=== PATIENT | female | born 1985 | race Caucasian/White ===

== ENCOUNTER 2018-10-17 01:40 | Inpatient (IN) | payer OTHER ==
[~2018-10-17] VITALS: Ht 170.2 cm; Wt 83.6 kg
[2018-10-17 01:50] VITALS: BP 136/74; PULSE 74; RESP 17; Ht 170.2 cm; Wt 83.6 kg
[2018-10-17] MEDS ORDERED: BUTORPHANOL 2 MG INJ ONE (02:18)
[2018-10-17] MEDS ORDERED: AMPICILLIN 2 GM/NS (PMX) 100 ML IV ONE (02:30)
[2018-10-17] MEDS ORDERED: CARBOPROST 250 MCG INJ IM PRN ×2 (02:30→06:00)
[2018-10-17] MEDS ORDERED: OXYTOCIN 30 UNITS/LR 500 ML IV PRN ×2 (02:30→06:00)
[2018-10-17] MEDS ORDERED: OXYTOCIN 30 UNITS/LR 500 ML IV SCH ×2 (02:30)
[2018-10-17] MEDS ORDERED: LIDOCAINE 1% (MPF) 30 ML INJ INJ PRN (02:30)
[2018-10-17] MEDS ORDERED: IBUPROFEN 600 MG TAB PO PRN (02:30)
[2018-10-17] MEDS ORDERED: BUTORPHANOL 2 MG INJ IV PRN (02:30)
[2018-10-17] MEDS ORDERED: MISOPROSTOL 200 MCG TAB PR PRN ×2 (02:30→06:00)
[2018-10-17] MEDS ORDERED: METHYLERGONOVINE 0.2 MG INJ IM PRN ×2 (02:30→06:00)
[2018-10-17] MEDS: LACTATED RINGER'S 1,000 ML IV SCH ×2 (02:34→03:26)
--- NOTE | 2018-10-17 03:06 | PREAC ---
Date/Time of Note Date/Time of Note DATE: 10/17/18 TIME: 03:05 Anesthesia Eval and Record Evaluation Time Pre-Procedure Interview DATE: 10/17/18 TIME: 03:05 Age 33 Sex female NPO: 8 hrs Preoperative diagnosis Planned procedure labor epidural Past Medical History Past Medical History: None Surgery & Anesthesia Issues No known issue Meds Anticoagulation: No Beta Victoriano within 24 hr: No Reason Beta Victoriano not given: Pt. not on B-Victoriano Current Medications Lactated Ringer's 1,000 ml @ 125 mls/hr Q8H IV Last administered on 10/17/18at 02:34; Admin Dose 125 MLS/HR; Start 10/17/18 at 02:07 Lidocaine (Xylocaine 1% (Mpf)) 30 ml ONCE PRN INJ .EPISIOTOMY; Start 10/17/18 at 02:30 Oxytocin/Lactated Ringer's 500 ml @ 500 mls/hr ONCE POST IV ; Start 10/17/18 at 02:30 Oxytocin/Lactated Ringer's 500 ml @ 125 mls/hr POST IV ; Start 10/17/18 at 02:30 Ibuprofen (Motrin) 600 mg ONCE PRN PO .PAIN 1-5; Start 10/17/18 at 02:30 Oxytocin/Lactated Ringer's 500 ml @ 0 mls/hr ONCE PRN IV .VAGINAL BLEEDING; Start 10/17/18 at 02:30 Methylergonovine Maleate (Methergine) 0.2 mg ONCE PRN IM .VAGINAL BLEEDING; Start 10/17/18 at 02:30 Carboprost Tromethamine (Hemabate) 250 mcg ONCE PRN IM .VAGINAL BLEEDING; Start 10/17/18 at 02:30 Misoprostol (Cytotec) 1,000 mcg ONCE PRN [place] .VAGINAL BLEEDING; Start 10/17/18 at 02:30 Butorphanol Tartrate (Stadol) 2 mg Q2H PRN IV PAIN Last administered on 10/17/18at 02:43; Admin Dose 2 MG; Start 10/17/18 at 02:30 Meds reviewed: Yes Allergies Coded Allergies: No Known Allergy (Unverified , 10/17/18) Allergies Reviewed: Yes Labs/Studies Labs Reviewed: Reviewed by anesthesiologist Result Diagram: 10/17/18 0230 Laboratory Tests 10/17/18 02:30 test: Positive Pre-procedure Exam Last vitals Vital Signs Date Temp Pulse Resp B/P (MAP) Pulse Ox O2 O2 Flow FiO2 Time Delivery Rate 10/17/18 98.1 74 17 136/74 Room Air 01:50 (94) Airway: Adequate mouth opening, Adequate thyromental dist Mallampati: Mallampati II Teeth: Normal Lung: Normal Heart: Normal ASA Physical Status ASA physical status: 2 Emergency: None Planned Anesthetic Neuraxial: Epidural Pre-operative Attestations Prior to commencing anesthesia and surgery, the patient was re-evaluated, there was verification of: *The patient's identity *The results of appropriate recent lab work and preoperative vital signs *The above evaluation not changing prior to induction *Anesthetic plan, risk benefits, alternative and complications discussed with patient/family; questions answered; patient/family understands, accepts and wishes to proceed. JOANNE ALEMAN Oct 17, 2018 03:06
[2018-10-17] MEDS ORDERED: ROPIVACAINE 0.2% 100 ML ONE (03:23)
[2018-10-17] MEDS ORDERED: DIPHENHYDRAMINE 50 MG INJ IV PRN (03:30)
[2018-10-17] MEDS ORDERED: ROPIVACAINE 0.2% 100ML BAG EPI SCH (03:30)
[2018-10-17] MEDS ORDERED: ONDANSETRON 4 MG INJ IV PRN (03:30)
[2018-10-17] MEDS ORDERED: NALOXONE (0.4 MG/ML) INJ IV PRN (03:30)
[2018-10-17] MEDS ORDERED: HYDROmorphONE 0.5 MG/0.5 ML SYG IV PRN ×2 (03:30)
[2018-10-17] MEDS ORDERED: KETOROLAC 30 MG INJ IV PRN (03:30)
--- NOTE | 2018-10-17 04:14 | HP ---
Date/Time of Note Date/Time of Note DATE: 10/17/18 TIME: 04:02 OB - History Hx of Present Free Text/Dictation 33y.o here at triage with c/o UC's q3-4min which started at 2030 with intact membrane. initial VE 7/100/-2 with membrane was bulging tracing CAT I no record is available. marijuana use positive GBS neg admitted for expectant management. Chief Complaint: uc's Estimated Due Date: Oct 22, 2018 : 7 Para: 2 Spontaneous : 3 Therapeutic : 1 Care: Other Ultrasounds: Other Obstetrical Complications: None Medical Complications: None Past Family/Social History * Past Medical, Surgical, Family and Obstetric Histories reviewed from chart. Blood Type: O+ Rubella: immune RPR/VDRL: Negative GBS Status: Negative HBsAG: Negative OB Admission Exam Vital Signs Vital Signs Vital Signs Date Temp Pulse Resp B/P (MAP) Pulse Ox O2 O2 Flow FiO2 Time Delivery Rate 10/17/18 98.1 74 17 136/74 Room Air 01:50 (94) Physical Exam HEENT: WNL Heart: Rhythm Normal Lungs: Clear, Equal Abdomen: WNL Extremities: Normal Reflexes: Normal Cervical Dilatation: 7cm Effacement: 100% Station: -2 Membranes: Intact Amniotic Fluid: Unevaluable Heart Rate: 130's Accelerations: Accelerations Present Decelerations: No Decelerations Varibility: Moderate Contractions on Admission: < 5 Minutes Apart Intensity: Firm Last 72 hours Lab Results CBC & BMP 10/17/18 02:30 OB Assessment/Plan Reason for admission: active labor Other Assessment: IUP 39w2d Plan: Expectant Management JUANY RUIZ MD Oct 17, 2018 04:12
--- NOTE | 2018-10-17 04:18 | LDN ---
Date/Time of Note Date/Time of Note DATE: 10/17/18 TIME: 04:16 Delivery Summary of normal female with tight nuchal cord X1 Weeks of Gestation 39w2d Placenta Delivered: Spontaneously, Intact & Complete Meconium: none Episiotomy: No Perineal laceration: 0 Anesthesia type: Epidural Estimated blood loss: 50 Sponge & Needle done & correct: Yes All needle counts correct: Yes Any foreign bodies felt in the: No Infant Delivery Information Sex Sex: female Apgars 1 Minute: 8 5 Minute: 9 Suctioning Nose & mouth suctioned at hira: Yes Delee suction performed: Yes Umbilical Cord Umbilical cord with: 3 Vessels Cord presentations: nuchal cord Nuchal cord present X: 1 Cord Blood was obtained: Yes Mother & Baby Disposition Disposition Mom & Baby to Maternity; Good: Yes Mom transferred to: Other Baby to NICU: No () JUANY RUIZ MD Oct 17, 2018 04:18
[2018-10-17 05:50] VITALS: BP 127/76; PULSE 76; RESP 19
[2018-10-17] MEDS ORDERED: BENZOCAINE 20% 56 ML SPRAY TOP PRN (06:00)
[2018-10-17] MEDS ORDERED: ZOLPIDEM 5 MG TAB PO PRN (06:00)
[2018-10-17] MEDS ORDERED: WITCH HAZEL/GLYCERIN PAD PR PRN (06:00)
[2018-10-17] MEDS ORDERED: LANOLIN HPA 1 PKT TOP PRN (06:00)
[2018-10-17] MEDS ORDERED: OXYCODONE/ASPIRIN (4.88/325) TAB PO PRN ×2 (06:00)
[2018-10-17] MEDS: IBUPROFEN 600 MG TAB PO SCH ×4 (06:00→23:34)
--- NOTE | 2018-10-17 06:11 | DELSUM ---
Delivery Summary A-C Datetime Report Generated by CPN: 10/17/2018 06:11 DELIVERY PERSONNEL Project Construction Manager: Ross, Michaelle MATERNAL INFORMATION Delivery Anesthesia: Epidural Medications in Delivery: 30 UNIT PITOCIN Delivery QBL (ml): 50 Placenta Cultured: No Maternal Complications: None LABOR SUMMARY EDC: 10/22/2018 00:00 No. Babies in Womb: 1 Attempted: Yes Labor Anesthesia: Epidural LABOR INFORMATION Reason for Induction: Not Applicable Onset of Labor: 10/16/2018 20:30 Complete Dilatation: 10/17/2018 03:40 Oxytocin: N/A Group B Beta Strep: Negative Antibiotics # of Doses: 0 Steroids Given: None Reason Steroids Not Administered: Not Applicable MEMBRANES Membranes Rupture Method: Artificial Rupture of Membranes: 10/17/2018 02:13 Length of Rupture (hr): 1.55 Amniotic Fluid Color: Clear Amniotic Fluid Amount: Moderate STAGES OF LABOR Stage 1 hr: 7 Stage 1 min: 10 Stage 2 hr: 0 Stage 2 min: 6 Stage 3 hr: 0 Stage 3 min: 4 Total Time in Labor hr: 7 Total Time in Labor min: 20 VAGINAL DELIVERY Episiotomy: None Laceration Extension: N/A Laceration Type: None Laceration Repair: Not Applicable Initial Vag Sponge Count: 10 Final Vag Sponge Count: 10 Initial Vag Sharps Count: 1 Final Vag Sharps Count: 1 Sponge Count Correct: Yes; Vaginal Sweep Performed Sharps Count Correct: Yes BABY A INFORMATION Infant Delivery Date/Time: 10/17/2018 03:46 Method of Delivery: Vaginal Method of Delivery: Vaginal Born in Route : No : N/A Forceps: N/A Vacuum Extraction: N/A Shoulder Dystocia : N/A SHOULDER DYSTOCIA BABY A Infant Delivery Date/Time: 10/17/2018 03:46 PRESENTATION/POSITION BABY A Presentation: Cephalic Cephalic Presentation: Vertex Vertex Position: Left Occipital Anterior Breech Presentation: N/A PLACENTA INFORMATION BABY A Placenta Delivery Time : 10/17/2018 03:50 Placenta Method of Delivery: Spontaneous Placenta Status: Delivered SCORES BABY A Heart Rate 1 min: >100 bpm Resp Effort 1 min: Good Cry Reflex Irritability 1 min: Cough/Sneeze/Pulls Away Muscle Tone 1 min: Active Motion Color 1 min: Blue/Pale Resuscitation Effort 1 min: Tactile Stimulation SCORE 1 MIN: 8 Heart Rate 5 min: >100 bpm Resp Effort 5 min: Good Cry Reflex Irritability 5 min: Cough/Sneeze/Pulls Away Muscle Tone 5 min: Active Motion Color 5 min: Body [place], Extremit Blue Resuscitation Effort 5 min: Tactile Stimulation SCORE 5 MIN: 9 INFANT INFORMATION BABY A Gestational Age at Delivery: 39.2 Gestational Status: Full Term- 39- 40.6 Weeks Outcome : Liveborn Infant Condition : Stable Infant Sex: Female Sex: Female IDENTIFICATION/MEDS BABY A ID Band Number: [id number] ID Band Location: Right Leg; Left Arm Sensor Applied: Yes Sensor Number: [id number] Sensor Location : Cord Clamp Vitamin K Given : Not Given Erythromycin Given: Not Given WEIGHT/LENGTH BABY A Infant Birthweight (gm): 3080 Infant Weight (lb): 6 Weight (oz): 13 Infant Length (in): 19.50 Length (cm): 49.53 CORD INFORMATION BABY A No. Cord Vessels: 3 Nuchal Cord : Around Neck x1, Tight Cord Blood Taken: Yes Suction: Mouth; Nose ASSESSMENT BABY A Infant Complications: Other Physical Findings at Delivery: Within Normal Limits Respirations: Appears Normal Lunch Cook/ALS Called : No Infant Care By: Asha DUVAL Transferred To: Remains with Mother
[2018-10-17] MEDS ORDERED: AMPICILLIN 1 GM/NS (PMX) 50 ML IV SCH (06:30)
[2018-10-17 07:30] VITALS: BP 122/66; PULSE 78; RESP 19
[2018-10-17] MEDS: SENNA/DOCUSATE NA (8.6MG/50MG) TAB PO SCH ×2 (09:28→21:03)
[2018-10-17 12:00] VITALS: BP 113/61; PULSE 85; RESP 19
[2018-10-17 16:00] VITALS: BP 111/60; PULSE 74; RESP 20
[2018-10-17 19:20] VITALS: BP 119/68; PULSE 89; RESP 20
[2018-10-18 04:00] VITALS: BP 114/77; PULSE 77; RESP 19
[2018-10-18] MEDS: IBUPROFEN 600 MG TAB PO SCH ×3 (05:27→17:52)
[2018-10-18 08:00] VITALS: BP 100/70; PULSE 74; RESP 18
[2018-10-18] MEDS: SENNA/DOCUSATE NA (8.6MG/50MG) TAB PO SCH ×2 (08:35→21:26)
[2018-10-18 15:51] VITALS: BP 120/57; PULSE 84; RESP 18
[2018-10-18 19:55] VITALS: BP 115/57; PULSE 84; RESP 20
[2018-10-19 03:45] VITALS: BP 108/56; PULSE 71; RESP 18
[2018-10-19] MEDS: IBUPROFEN 600 MG TAB PO SCH ×4 (05:31→18:00)
--- NOTE | 2018-10-19 07:23 | PAC ---
Date/Time of Note Date/Time of Note DATE: 10/19/18 TIME: 07:22 Post-Anesthesia Notes Post-Anesthesia Note Last documented vital signs Vital Signs Date Temp Pulse Resp B/P (MAP) Pulse Ox O2 O2 Flow FiO2 Time Delivery Rate 10/19/18 98.4 71 18 108/56 Room Air 03:45 (73) Activity: WNL Respiratory function: WNL Cardiovascular function: WNL Mental status: Baseline Pain reasonably controlled: Yes Hydration appropriate: Yes Nausea/Vomiting absent: Yes JOANNE ALEMAN Oct 19, 2018 07:22
[2018-10-19 08:10] VITALS: BP 113/66; PULSE 65; RESP 16
[2018-10-19] MEDS: SENNA/DOCUSATE NA (8.6MG/50MG) TAB PO SCH ×2 (09:00→21:00)
[2018-10-19] MEDS ORDERED: DIPHTH/TET/ACEL PERTUSS (ADULT) 0.5 ML VIAL IM* ONE (09:00)
--- NOTE | 2018-10-19 13:35 | PN ---
Date/Time of Note Date/Time of Note DATE: 10/18/18 TIME: 10:30AM Assessment/Plan VTE Prophylaxis Risk score (from Nsg)>0 risk: 1 SCD applied (from Ns): No SCD contraindicated: low risk/ambulating Pharmacological prophylaxis: NA/contraindicated Pharm contraindication: low risk/ambulating Lines/Catheters IV Catheter Type (from Nrsg): Peripheral IV Assessment/Plan Assessment/Plan POST DAY 1 HOME TOMORROW RETURN TO CLINIC IN 2 WEEKS CONTINUE WITH VITAMINS OD AND FERROUS SULFATE PO TID DIET ADVISED COUNSELED INSTRUCTED CALL OFFICE IF THERE IS ANY PROBLEMS OR CONCERN Result Diagram: 10/18/18 0736 Subjective 24 Hr Interval Summary Free Text/Dictation FEELS GOOD, GOOD URINE OUTPUT, GOOD BOWEL MOVEMENT Exam/Review of Systems Exam Vitals Vital Signs Date Temp Pulse Resp B/P (MAP) Pulse Ox O2 O2 Flow FiO2 Time Delivery Rate 10/19/18 98.3 65 16 113/66 Room Air 08:10 (82) Exam VITAL SIGNS STABLE: YES AFEBRILE: YES BREAST NOT ENGORGED, NON-TENDER, NO APPRECIABLE MASS: YES LUNGS CLEAR, NO RALES, WHEEZES, RHONCHI: YES SINUS RHYTHM WITHOUT MURMUR: YES ABDOMEN: NON-TENDER FUNDUS: BELOW UMBILICUS BOWEL SOUNDS: PRESENT UTERUS: FIRM INTACT PERINEUM: YES LOCHIA: LIGHT DEEP TENDON REFLEXES: 0 EXTREMITIES: NO CALF TENDERNESS EDEMA SCALE: NONE Medications Medication Current Medications Ibuprofen (Motrin) 600 mg Q6 PO Last administered on 10/18/18at 17:52; Admin Dose 600 MG; Start 10/17/18 at 06:00 Oxycodone/Aspirin (Percodan) 1 tab Q3H PRN PO .PAIN 1-5; Start 10/17/18 at 06:00 Oxycodone/Aspirin (Percodan) 2 tab Q3H PRN PO .PAIN 6-10 Last administered on 10/17/18at 19:43; Admin Dose 2 TAB; Start 10/17/18 at 06:00 Zolpidem Tartrate (Ambien) 5 mg QHS PRN PO .INSOMNIA; Start 10/17/18 at 06:00 Senna/Docusate Sodium (Senokot-S) 1 tab BID PO Last administered on 10/18/18at 21:26; Admin Dose 1 TAB; Start 10/17/18 at 09:00 Witch Meg/ Glycerin (Tucks Pads) 1 pad BEDSIDE MEDICATION PRN NM .HEMORRHOID/EPISIOTOMY PAIN Last administered on 10/17/18at 06:25; Admin Dose 40 PAD; Start 10/17/18 at 06:00 Benzocaine (Dermoplast [place]) 1 spray BEDSIDE MEDICATION PRN TOP .HEMMORHOID/EPISIOTOMY PAIN Last administered on 10/17/18at 06:24; Admin Dose 56 SPRAY; Start 10/17/18 at 06:00 Lanolin (Lanolin Hpa) 1 applic BEDSIDE MEDICATION PRN TOP .NIPPLES Last administered on 10/17/18at 06:25; Admin Dose 1 APPLIC; Start 10/17/18 at 06:00 Oxytocin/Lactated Ringer's 500 ml @ 0 mls/hr ONCE PRN IV .VAGINAL BLEEDING; Start 10/17/18 at 06:00 Methylergonovine Maleate (Methergine) 0.2 mg ONCE PRN IM .VAGINAL BLEEDING; Start 10/17/18 at 06:00 Carboprost Tromethamine (Hemabate) 250 mcg ONCE PRN IM .VAGINAL BLEEDING; Start 10/17/18 at 06:00 Misoprostol (Cytotec) 1,000 mcg ONCE PRN NM .VAGINAL BLEEDING; Start 10/17/18 at 06:00 CARIDAD GARG MD Oct 19, 2018 13:35
[2018-10-19 20:00] VITALS: BP 126/56; PULSE 89; RESP 18
--- NOTE | 2018-10-20 21:59 | DELSUM ---
Delivery Summary A-C Datetime Report Generated by CPN: 10/20/2018 21:58 DELIVERY PERSONNEL Dumpcart Driver: Ross, Michaelle MATERNAL INFORMATION Delivery Anesthesia: Epidural Medications in Delivery: 30 UNIT PITOCIN Delivery QBL (ml): 50 Placenta Cultured: No Maternal Complications: None LABOR SUMMARY EDC: 10/22/2018 00:00 No. Babies in Womb: 1 Attempted: Yes Labor Anesthesia: Epidural LABOR INFORMATION Reason for Induction: Not Applicable Onset of Labor: 10/16/2018 20:30 Complete Dilatation: 10/17/2018 03:40 Oxytocin: N/A Group B Beta Strep: Negative Antibiotics # of Doses: 0 Steroids Given: None Reason Steroids Not Administered: Not Applicable MEMBRANES Membranes Rupture Method: Artificial Rupture of Membranes: 10/17/2018 02:13 Length of Rupture (hr): 1.55 Amniotic Fluid Color: Clear Amniotic Fluid Amount: Moderate STAGES OF LABOR Stage 1 hr: 7 Stage 1 min: 10 Stage 2 hr: 0 Stage 2 min: 6 Stage 3 hr: 0 Stage 3 min: 4 Total Time in Labor hr: 7 Total Time in Labor min: 20 VAGINAL DELIVERY Episiotomy: None Laceration Extension: N/A Laceration Type: None Laceration Repair: Not Applicable Initial Vag Sponge Count: 10 Final Vag Sponge Count: 10 Initial Vag Sharps Count: 1 Final Vag Sharps Count: 1 Sponge Count Correct: Yes; Vaginal Sweep Performed Sharps Count Correct: Yes BABY A INFORMATION Infant Delivery Date/Time: 10/17/2018 03:46 Method of Delivery: Vaginal Born in Route : No : N/A Forceps: N/A Vacuum Extraction: N/A Shoulder Dystocia : N/A SHOULDER DYSTOCIA BABY A Delivery Date/Time: 10/17/2018 03:46 PRESENTATION/POSITION BABY A Presentation: Cephalic Cephalic Presentation: Vertex Vertex Position: Left Occipital Anterior Breech Presentation: N/A PLACENTA INFORMATION BABY A Placenta Delivery Time : 10/17/2018 03:50 Placenta Method of Delivery: Spontaneous Placenta Status: Delivered SCORES BABY A Heart Rate 1 min: >100 bpm Resp Effort 1 min: Good Cry Reflex Irritability 1 min: Cough/Sneeze/Pulls Away Muscle Tone 1 min: Active Motion Color 1 min: Blue/Pale Resuscitation Effort 1 min: Tactile Stimulation SCORE 1 MIN: 8 Heart Rate 5 min: >100 bpm Resp Effort 5 min: Good Cry Reflex Irritability 5 min: Cough/Sneeze/Pulls Away Muscle Tone 5 min: Active Motion Color 5 min: Body [place], Extremit Blue Resuscitation Effort 5 min: Tactile Stimulation SCORE 5 MIN: 9 INFANT INFORMATION BABY A Gestational Age at Delivery: 39.2 Gestational Status: Full Term- 39- 40.6 Weeks Infant Outcome : Liveborn Infant Condition : Stable Infant Sex: Female IDENTIFICATION/MEDS BABY A ID Band Number: [id number] ID Band Location: Right Leg; Left Arm Sensor Applied: Yes Sensor Number: [id number] Sensor Location : Cord Clamp Vitamin K Given : Not Given Erythromycin Given: Not Given WEIGHT/LENGTH BABY A Infant Birthweight (gm): 3080 Weight (lb): 6 Infant Weight (oz): 13 Length (in): 19.50 Length (cm): 49.53 CORD INFORMATION BABY A No. Cord Vessels: 3 Nuchal Cord : Around Neck x1, Tight Cord Blood Taken: Yes Infant Suction: Mouth; Nose ASSESSMENT BABY A Infant Complications: Other Physical Findings at Delivery: Within Normal Limits Infant Respirations: Appears Normal Medical Office Administrator/ALS Called : No Care By: Asha DUVAL Transferred To: Remains with Mother
== END 2018-10-19 20:15 | disposition home or self-care (01) | DRG 807 ==
LOC: OBT 01:40 → L-D 01:43 → OBT 01:56 → PP1 05:52
PROVIDERS: ADMIT Obstetrics & Gynecology; ATTEND Obstetrics & Gynecology
PROC: 10E0XZZ Delivery of Products of Conception, External Approach (ICD-10-PCS; principal; 2018-10-17)
PROC: 3E033VJ Introduction of Other Hormone into Peripheral Vein, Percutaneous Approach (ICD-10-PCS; 2018-10-17)
DX: O69.81X0 Labor and delivery complicated by cord around neck, without compression, not applicable or unspecified (principal); Z37.0 Single live birth; Z3A.39 39 weeks gestation of pregnancy
CPT/HCPCS: 80307; 85025; 85610; 85730; 86592; 86850; 86900; 86901; 87340; G0463; J0595; J2590; J2795; J7120